=== PATIENT | female | born 1980 | race Asian ===

== ENCOUNTER 2019-10-24 08:57 | Outpatient (CLI) | payer BC ==
--- NOTE | 2019-10-24 11:17 | ULT ---
ABDOMINAL ULTRASOUND: DATE: 10/24/2019. COMPARISON: None. HISTORY: Abdominal pain. TECHNIQUE: Multiplanar, reza scale sonographic imaging of the abdomen obtained. FINDINGS: The imaged abdominal aorta and IVC appear grossly unremarkable. Imaged pancreas appears unremarkable as well. The tail is partially obscured by bowel gas. No focal liver lesion or intrahepatic biliary dilatation is noted. Common bile duct measures 3 mm, within normal limits. No gallbladder wall thickening or pericholecystic fluid. No gallstones are seen. The right kidney measures 10.8 cm in craniocaudal dimension and demonstrates no stone, hydronephrosis , or mass. The left kidney measures 10.3 cm craniocaudal dimension and demonstrates no stone, hydron ephrosis, or mass. The spleen measures up to 9.5 cm, within normal limits. IMPRESSION: Unremarkable abdominal ultrasound. POS: [id number]
== END 2019-10-24 08:58 | disposition home or self-care (01) ==
LOC: SCSULT 08:57
PROVIDERS: ATTEND Internal Medicine Gastroenterology
DX: R10.9 Unspecified abdominal pain (principal)
CPT/HCPCS: 93975